=== PATIENT | male | born 1970 | race Caucasian/White ===

== ENCOUNTER 2024-06-13 14:04 | Emergency (ER) | payer SELFPAY ==
[~2024-06-13] VITALS: Ht 170.2 cm; Wt 91.0 kg
[2024-06-13 14:16] VITALS: O2SAT 98
[2024-06-13 14:31] VITALS: BP 126/86; PULSE 92; RESP 18; TEMP 98.6; O2SAT 98
== END 2024-06-13 17:37 | disposition left against medical advice (07) ==
LOC: ER 14:29
DX: R51.9 Headache, unspecified (principal); Z53.21 Procedure and treatment not carried out due to patient leaving prior to being seen by health care provider